=== PATIENT | male | born 1960 | race Caucasian/White ===

== ENCOUNTER 2020-01-12 17:47 | Inpatient (IN) | payer MEDICAID, OTHER ==
[~2020-01-12] VITALS: Ht 180.3 cm; Wt 115.2 kg
[2020-01-12 18:30] VITALS: BP 160/92
--- NOTE | 2020-01-12 19:19 | NUR ---
PT AMBULATED TO BED 7.
[2020-01-12 19:27] LABS: BASOPHILS % (AUTO) 0.5 % (0.0-2.0); EOSINOPHILS # (AUTO) 0.1 K/uL (0-0.4); EOSINOPHILS % (AUTO) 1.1 % (0.0-4.0); HEMATOCRIT 45.7 % (36-52); HEMOGLOBIN 15.4 g/dL (12.0-18.0); LYMPHOCYTES # (AUTO) 1.6 K/uL (2.0-11.5); LYMPHOCYTES % (AUTO) 16.4 % (20.5-51.1); MEAN CORPUSCULAR HEMOGLOBIN 31 pg (27-31); MEAN CORPUSCULAR HGB CONC 34 g/dL (33-37); MONOCYTES # (AUTO) 1.1 K/uL (0.8-1.0); MONOCYTES % (AUTO) 11.8 % (1.7-9.3); NEUTROPHILS # (AUTO) 6.6 K/uL (1.8-7.7); NEUTROPHILS % (AUTO) 70.2 % (42.2-75.2); PLATELET COUNT (AUTO) 236 K/uL (140-450); RED BLOOD CELL COUNT(AUTO) 4.97 MIL/uL (4.20-6.10); RED CELL DISTRIBUTION WIDTH 13.7 % (11.6-13.7); WHITE BLOOD COUNT (AUTO) 9.5 K/uL (4.8-10.8)
[2020-01-12 19:38] LABS: ALBUMIN 3.5 g/dL (3.4-5.0); ANION GAP 8.5 (8-16); CARBON DIOXIDE 33.7 mmol/L (21-32); CREATININE 0.9 mg/dL (0.6-1.3); POTASSIUM 4.2 mmol/L (3.5-5.1); TOTAL BILIRUBIN 0.5 mg/dL (0.0-1.0)
--- NOTE | 2020-01-12 19:43 | NUR ---
59 Y/O MALE C/O RIGHT THUMB/HAND PAIN. PT CUT RIGHT THUMB 5 DAYS AGO AT WORK AND APPLIED A NATURAL REMEDY WITH NO RELIEF. TODAY PT PRESENTS WITH RIGHT SWOLLEN THUMB WITH LACERATION LINE THAT IS PURPLE/BLACK FROM NATURAL MEDICATION FROM [place] PER PT. RIGHT HAND IS SWOLLEN WITH ERYTHEMA, RIGHT HAND/FINGER MOBILITY IS DECREASED. RADIAL RIGHT PULE PRESENT. MEDICAL HX: PT DENIES NKA DENIES N/V/D; SKIN IS PINK/WARM/DRY; AAOX4 WITH EVEN AND STEADY GAIT; PT DENIES ANY FEVER, CP, SOB, OR COUGH AT THIS TIME; PATIENT STATES PAIN OF 4/10 AT THIS TIME; VSS; PATIENT POSITIONED FOR COMFORT; HOB ELEVATED; BEDRAILS UP X1; BED DOWN AND LOCKED.
[2020-01-12] MEDS ORDERED: KETOROLAC 30 MG/ML VIAL IVP ONE (19:50)
[2020-01-12] MEDS ORDERED: NACL 0.9% 1,000 ML IV ONE (19:50)
[2020-01-12] MEDS ORDERED: ceFAZolin 1,000 MG VIAL ONE (19:52)
[2020-01-12] MEDS ORDERED: NACL 0.9% 1,000 ML IV SCH (19:58)
[2020-01-12] MEDS ORDERED: ACETAMINOPHEN 325 MG TAB PO PRN (20:00)
[2020-01-12] MEDS ORDERED: DOCUSATE SODIUM 100 MG GELCAP PO PRN ×2 (20:00→20:15)
[2020-01-12] MEDS ORDERED: MORPHINE SULFATE 2 MG/ML SYR IVP PRN (20:00)
[2020-01-12] MEDS ORDERED: ONDANSETRON 4 MG/2 ML VIAL IM/IVP PRN ×2 (20:00→20:15)
--- NOTE | 2020-01-12 20:16 | NUR ---
PT RESTING IN BED IN POSITION OF COMFORT, PT JUST RECEIVED PAIN MEDS, BED LOW AND LOCKED, 1 SIDERAIL UP. WILL CONTINUE TO MONITOR.
[2020-01-12 20:36] LABS: PROTHROMBIN TIME 10.2 secs (10.8-13.4)
[2020-01-12 20:43] LABS: FREE T4 (FREE THYROXINE) 1.21 ng/dL (0.76-1.46); PHOSPHORUS 3.6 mg/dL (2.5-4.9); THYROID STIMULATING HORMONE 1.61 uIU/mL (0.34-3.74)
--- NOTE | 2020-01-12 21:03 | NUR ---
GAVE PT URINAL AND ASKED HIM TO VOID BUT PT STATES UNABLE TO VOID AT THIS TIME
--- NOTE | 2020-01-12 21:05 | NUR ---
RECIVED REPORT FROM SAL PINEDO. CONTINUATION OF CARE.
--- NOTE | 2020-01-12 21:08 | NUR ---
Pt report given to SHAHIDA MCCLURE . Transfer of care at this time.
[2020-01-12] MEDS ORDERED: VANCOMYCIN PER PHARMACY MC PRN (21:30)
[2020-01-12] MEDS ORDERED: VANCOMYCIN HCL 2,000 MG in NACL 0.9% 500 ML IV SCH (21:40)
--- NOTE | 2020-01-12 22:00 | NUR ---
Patient will be admitted to care of . Admited to [facility]. Will go to room 126B. Belongings list completed. Report to LOU PINEDO.
[2020-01-12 22:04] LABS: APPEARANCE,URINE SL CLOUDY (CLEAR); BILIRUBIN,URINE NEGATIVE (NEGATIVE); BLOOD, URINE TRACE-I (NEGATIVE); COLOR,URINE YELLOW (YELLOW); LEUKOCYTE ESTERASE ,URINE NEGATIVE (NEGATIVE); NITRITE, URINE NEGATIVE (NEGATIVE); PH,URINE 5.5 (5.0-9.0); UGLUCOSE NEGATIVE (NEGATIVE)
[2020-01-12 22:10] VITALS: BP 130/70
--- NOTE | 2020-01-12 22:10 | NUR ---
RECIEVED PT FRM ER , AAOX4 , ON WHEELCAHIR , AMBULATES TO BED NID , W/ SWOLLEN R HAND - W/ LACERATED WOUND ON R THUMB W/ PUS FORMED . AFEBRLE . IV SITE INTACT AND PATENT . ADMISSION ASSESSMENT DONE - MRSA SENT TO LAB . PUT ON SAFETY MEASURE - CALL LIGHT WITHIN REACH . POC DISCUSSED AND VERBALIZE UNDERSTANDING WILL CONT. TO MONITOR.
[2020-01-12] MEDS ORDERED: VANCOMYCIN 1,000 MG VIAL ONE (22:47)
[2020-01-12] MEDS: NACL 0.9% 1,000 ML IV SCH (22:57)
[2020-01-12 23:17] LABS: RBC,URINE 0-5 /HPF (0-5); URINE AMORPHOUS URATE 1+ /HPF (None Seen); WBC,URINE 0-5 /HPF (0-5)
[2020-01-12 23:52] LABS: BARBITURATE, URINE NEGATIVE ng/ml (NEG <=200); BENZODIAZEPINE, URINE NEGATIVE ng/mL (NEG <=200); CANNABINOID, URINE NEGATIVE ng/mL (NEG <=50); COCAINE, URINE NEGATIVE ng/mL (NEG <=300); OPIATE, URINE NEGATIVE ng/mL (NEG <=2000); PHENCYCLIDINE SCREEN,URINE NEGATIVE ng/mL (NEG <=25)
--- NOTE | 2020-01-13 | NUR ---
RESTING ON BED , CALL LIGHT WITHIN REACH.
[2020-01-13 04:00] VITALS: BP 140/80
--- NOTE | 2020-01-13 04:00 | NUR ---
NO COMPLAIN MADE - CALL LIGHT WITHIN REACH.
--- NOTE | 2020-01-13 06:00 | NUR ---
MAINTAIN NPO - R EMPHASIZED . BEARABLE PAIN .
[2020-01-13 06:51] LABS: CHOL/HDL RATIO 3.7 (1-4.5)
--- NOTE | 2020-01-13 07:10 | NUR ---
Received report from pm nurse Carol. Pt resting in bed, no signs of distress, FLACC 0, respirations even & nonlabored in room air. Left AC IV intact with ongoing NS @ 120ml/h. Call light within reach.
[2020-01-13 08:00] VITALS: BP 130/80
[2020-01-13] MEDS: NACL 0.9% 1,000 ML IV SCH ×3 (08:00→21:52)
[2020-01-13] MEDS: LACTOBACILLUS RHAMNOSUS GG 1 EACH CAP PO SCH (08:14)
[2020-01-13] MEDS: ACETAMINOPHEN 325 MG TAB PO PRN (08:17)
[2020-01-13] MEDS ORDERED: LACT10CA PO (08:45)
[2020-01-13] MEDS ORDERED: Vancomycin Per Pharmacy MC (08:45)
[2020-01-13] MEDS: VANCOMYCIN 1,000 MG in DEXTROSE 5% 250 ML IV SCH ×2 (10:03→17:12)
--- NOTE | 2020-01-13 10:39 | NUR ---
DISCHARGE PLANNING: RECEIVED AN ORDER FOR HIGHER LEVEL OF TRANSFER. [place] [facility] [place]. 0922: CONTACTED [facility] TRANSFER [place], ABLE TO SPEAK TO SAMANTA. HE STATED HE WILL CHECK IF THEY HAVE AN AVAILABLE HAND SURGEON AND WILL CALL ME BACK. 1015: RECEIVED A MESSAGE FROM SAMANTA OF [facility], STATING THAT THEIR HAND SURGEON IS FULLY BOOK AT THIS TIME AND WILL NOT BE ABLE TO ACCEPT THE CASE. CONTACTED [facility], ABLE TO SPEAK TO ARIANE AND SHE CONFIRMED THE MESSAGE. 1025: RECEIVED A CALL FROM [facility], STATING THAT THEY CANNOT ACCEPT THE CASE BECAUSE THEY DO NOT HAVE A HAND SURGEON. 1027: RECEIVED A CALL FROM VERONICA OF [facility] TO GATHER MORE INFORMATION REGARDING THIS PATIENT. ALL INFORMATION NEEDED PROVIDED. PROVIDED HER OF THE DR. BLAND'S PHONE NUMBER FOR DOC TO DOC CALL. SHE ALSO ASKED FOR THE SURGEON'S PHONE NUMBER. I INFORMED HER THAT I WILL DISCUSS THIS WITH OUR DOC SINCE THERE IS NO SURGICAL CONSULT IN PLACE. VERONICA STATED THAT THEY NEED DOCUMENTATION FROM OUR SURGEON STATING THAT THEY ARE NOT ABLE TO PERFORM THE PROCEDURE AT OUT FACILITY. DR. DANGELO MADE AWARE. SHE STATED SHE WILL CONTACT DR. AJ AND WILL LET ME KNOW. WILL FOLLOW UP. Addendum: 01/13/20 at 1449 by Taylor Mendoza 1147: PER DR. DANGELO SHE IS ABLE TO CONTACT DR. AJ AND DR. AJ WILL COME SEE THE PATIENT. 1230: PER DR. LORETO AJ CAME AND SEEN THE PATIENT AND RECOMMENDED HIGHER LEVEL OF TRANSFER. SHE ALSO PROVIDED ME OF DR. AJ'S PHONE NUMBER [phone] FOR DOC TO DOC CALL. DR. AJ'S PHONE NUMBER PROVIDED TO VERONICA OF [facility] TRANSFER CENTER. SHE SAID SHE WILL REACH OUT TO THEIR SURGEON'S AND WILL LET ME KNOW SOON WE GET AN ACCEPTING. RECEIVED A CALL FROM [facility], STATING THAT THEY ARE DECLINING THE CASE DUE TO PER THEIR HAND SURGEON PATIENT DOES NOT NEED SURGICAL INTERVENTION AND CAN BE MANAGE BY IV ANTIBIOTICS PER MEDICAL DEPARTMENT. HE ALSO STATED THAT THEY ARE AT A CAPACITY IN THEIR MEDICAL DEPARTMENT AND WILL NOT BE ABLE TO TAKE THE PATIENT IN. DR. DANGELO MADE AWARE. Addendum: 01/16/20 at 1124 by Tracey Veloz CM DC PLANNING: FAXED THE HIGHER LEVEL REQUEST TO [facility], [facility] , AND [facility]. RECEIVED A CALL FROM [facility] SPOKE WITH VERONICA UPDATED THE CLINICAL AND PROVIDE DR AJ'S CELL PHONE. PER VERONICA WILL FAX THE TRANSFER AGREEMENT PAPER [place] TO FOLLOW. Addendum: 01/16/20 at 1216 by Tracey Veloz CM DC PLANNING RECEIVED A CALL [facility] SPOKE WITH CHRISTINA STATED DR ELGIN [facility]HEAD ACCEPTED THE CASE AND WILL FAX TRANSFER AGREEMENT LETTER . RECEIVED A CALL FROM [facility] SPOKE WITH STARR STATED THE HAND SURGEON COMES ONLY ONCE A MONTH AND HE CAME ALREADY , THEY ARE UNABLE TO TAKE PATIENT. Addendum: 01/16/20 at 1630 by Tracey Veloz CM DC PLANNING: RECEIVED A CALL FROM [facility] SPOKE WITH TOM CORBETT RECEIVED THE TRANSFER AGREEMENT PAPER AND WAITING FOR A BED. RECEIVED A CALL FROM [facility] [phone] AND [facility] SPOKE WITH MAXIME [phone] STILL REVIEWING THE CASE WILL CALL BACK WHEN BED AVAILABLE AND ACCEPTING DR Henry MONDRAGON [facility] AND PLACE IT WILL CALL AND PROVIDED UNIT NUMBER.
[2020-01-13] MEDS: MORPHINE SULFATE 2 MG/ML SYR IVP PRN ×2 (10:58→17:13)
[2020-01-13] MEDS: PIPERACILLIN/TAZOBACTAM 3.375 GM in DEXTROSE 5% 50 ML IV SCH ×3 (12:26→23:45)
[2020-01-13] MEDS ORDERED: ZOS3.375PM IV (12:27)
[2020-01-13 14:59] LABS: BASOPHILS % (AUTO) 0.5 % (0.0-2.0); EOSINOPHILS # (AUTO) 0.1 K/uL (0-0.4); EOSINOPHILS % (AUTO) 1.1 % (0.0-4.0); HEMATOCRIT 40.5 % (36-52); HEMOGLOBIN 13.5 g/dL (12.0-18.0); LYMPHOCYTES # (AUTO) 1.8 K/uL (2.0-11.5); LYMPHOCYTES % (AUTO) 20.6 % (20.5-51.1); MEAN CORPUSCULAR HEMOGLOBIN 30 pg (27-31); MEAN CORPUSCULAR HGB CONC 33 g/dL (33-37); MONOCYTES # (AUTO) 0.9 K/uL (0.8-1.0); MONOCYTES % (AUTO) 10.1 % (1.7-9.3); NEUTROPHILS # (AUTO) 5.9 K/uL (1.8-7.7); NEUTROPHILS % (AUTO) 67.7 % (42.2-75.2); PLATELET COUNT (AUTO) 214 K/uL (140-450); RED BLOOD CELL COUNT(AUTO) 4.45 MIL/uL (4.20-6.10); RED CELL DISTRIBUTION WIDTH 13.6 % (11.6-13.7); WHITE BLOOD COUNT (AUTO) 8.6 K/uL (4.8-10.8)
[2020-01-13 15:16] LABS: CARBON DIOXIDE 28.7 mmol/L (21-32); CREATININE 0.8 mg/dL (0.6-1.3); POTASSIUM 3.7 mmol/L (3.5-5.1)
--- NOTE | 2020-01-13 15:51 | NUR ---
PATIENT HAS BEEN SCREENED AND CATEGORIZED HIGH NUTRITION RISK. PATIENT WILL BE SEEN WITHIN 1-2 DAYS OF ADMISSION. 01/13/20-01/14/[address]
[2020-01-13 16:00] VITALS: BP 146/84
--- NOTE | 2020-01-13 19:05 | NUR ---
RECD. RESTING IN BED, AWAKE, A/OX4. RESPIRATION EVEN AND UNLABORED. IV OF NS AT 120 ML/HR INFUSING, LEFT AC G20. RIGHT THUMB WITH DISCOLORATION AND SWELLING, WITH GAUZE DRESSING DRY AND INTACT. PLAN OF CARE FOR THE SHIFT DISCUSSED. VERBALIZED UNDERSTANDING. PAIN IN THE HAND 11/14, STATED TOLERABLE. ON IV ANTIBIOTICS.
--- NOTE | 2020-01-13 19:30 | NUR ---
Patient's Plan of Care was discussed and reviewed with FENCE BUILDER: DENISE
--- NOTE | 2020-01-13 21:00 | NUR ---
HOLD HEPARIN PER VERBAL ORDER OF DR. JARRETT, PATIENT IS FOR I & D TOMORROW.
--- NOTE | 2020-01-13 23:00 | NUR ---
SLEEPING COMFORTABLY IN BED.
[2020-01-13] MEDS: HYDROcodone/APAP 5/325 MG 1 TAB TAB PO PRN (23:41)
[2020-01-14] VITALS: BP 128/69
--- NOTE | 2020-01-14 | NUR ---
NPO PAST MIDNIGHT. VERBALIZED UNDERSTANDING.
[2020-01-14] MEDS: VANCOMYCIN 1,000 MG in DEXTROSE 5% 250 ML IV SCH (01:19)
--- NOTE | 2020-01-14 02:30 | NUR ---
SNORING A LOT. OCCASIONALLY MAKES STRANGE SOUNDS BUT WHEN ASKED IF HE HAS ANY PROBLEM, CONTINUED SLEEPING SOUNDLY.
--- NOTE | 2020-01-14 05:15 | NUR ---
SIGNED CONSENT FOR I & D OF RIGHT THUMB. REMINDED THAT HE IS NPO, VERBALIZED UNDERSTANDING.
[2020-01-14] MEDS: PIPERACILLIN/TAZOBACTAM 3.375 GM in DEXTROSE 5% 50 ML IV SCH ×4 (05:36→23:56)
[2020-01-14] MEDS: NACL 0.9% 1,000 ML IV SCH ×3 (05:48→22:52)
[2020-01-14 06:26] LABS: ANION GAP 9.2 (8-16); CARBON DIOXIDE 30.6 mmol/L (21-32); CREATININE 0.7 mg/dL (0.6-1.3); POTASSIUM 3.8 mmol/L (3.5-5.1)
[2020-01-14 06:31] LABS: BASOPHILS # (AUTO) 0.1 K/uL (0.00-0.22); BASOPHILS % (AUTO) 0.5 % (0.0-2.0); EOSINOPHILS # (AUTO) 0.1 K/uL (0-0.4); EOSINOPHILS % (AUTO) 0.8 % (0.0-4.0); HEMATOCRIT 39.9 % (36-52); HEMOGLOBIN 13.5 g/dL (12.0-18.0); LYMPHOCYTES % (AUTO) 19.4 % (20.5-51.1); MEAN CORPUSCULAR HEMOGLOBIN 31 pg (27-31); MEAN CORPUSCULAR HGB CONC 34 g/dL (33-37); MONOCYTES # (AUTO) 1.1 K/uL (0.8-1.0); MONOCYTES % (AUTO) 10.4 % (1.7-9.3); NEUTROPHILS % (AUTO) 68.9 % (42.2-75.2); PLATELET COUNT (AUTO) 223 K/uL (140-450); RED BLOOD CELL COUNT(AUTO) 4.39 MIL/uL (4.20-6.10); RED CELL DISTRIBUTION WIDTH 13.5 % (11.6-13.7); WHITE BLOOD COUNT (AUTO) 10.1 K/uL (4.8-10.8)
--- NOTE | 2020-01-14 07:20 | NUR ---
CONDITION REMAIN STABLE. ENDORSED TO AM SHIFT NURSE FOR CONTINUITY OF CARE.
--- NOTE | 2020-01-14 07:25 | NUR ---
RECEIVED BEDSIDE REPORT FROM NIGHT NURSE. PATIENT IN BED, ASLEEP, EASILY AROUSABLE BY NAME OR TOUCH. INTRODUCED SELF. RESPIRATION EVEN AND UNLABORED. SKIN WARM AND DRY TO TOUCH. IV INTACT AND PATENT TO LEFT AC. PLANS OF CARE DISCUSSED. NO DISTRESS NOTED. CALL LIGHT WITHIN REACH. SAFETY MEASURES IN PLACE.
[2020-01-14 08:00] VITALS: BP 134/75
[2020-01-14] MEDS: LACTOBACILLUS RHAMNOSUS GG 1 EACH CAP PO SCH (09:00)
--- NOTE | 2020-01-14 09:15 | NUR ---
PATIENT IS OFF UNIT. PATIENT PICKED UP BY SHAHIDA STEIN [facility] FOR I & D PROCEDURE.
[2020-01-14] MEDS ORDERED: LIDOCAINE 1% 500 MG/50 ML VIAL ONE (09:37)
[2020-01-14] MEDS ORDERED: BACITRACIN 50000 UNITS/1 VIAL ONE (09:38)
[2020-01-14] MEDS ORDERED: DESFLURANE 240 ML BTL INH ONE (09:46)
[2020-01-14] MEDS ORDERED: ONDANSETRON 4 MG/2 ML VIAL ONE (09:46)
[2020-01-14] MEDS ORDERED: PROPOFOL 200 MG/20 ML VIAL IV ONE (09:46)
[2020-01-14] MEDS ORDERED: fentaNYL 0.05 MG/ML VIAL ONE (09:46)
--- NOTE | 2020-01-14 10:05 | NUR ---
WOUND CARE EVALUATION NOT DONE. PT IS OFF UNIT FOR SURGERY.
[2020-01-14] MEDS ORDERED: INSULIN LISPRO SLIDING SCALE 100 UNITS/ML VIAL SUBQ PRN (11:05)
[2020-01-14] MEDS ORDERED: DEXTROSE 50% 50 ML SYR IVP PRN (11:05)
[2020-01-14 11:10] VITALS: BP 129/72
--- NOTE | 2020-01-14 11:10 | NUR ---
PATIENT RETURNED FROM OR VIA GURNEY. PATIENT S/P I & D TO RIGHT THUMB. RIGHT HAND S/P I & D COVERED WITH DRY DRESSING AND MARILIN WRAP. VS STABLE.
[2020-01-14] MEDS: MORPHINE SULFATE 2 MG/ML SYR IVP PRN (11:24)
[2020-01-14] MEDS ORDERED: BLOOD GLUCOSE MONITORING 1 DEV DEV FS SCH (11:30)
--- NOTE | 2020-01-14 13:00 | NUR ---
PATIENT IS LYING IN BED ASLEEP BUT EASILY AROUSABLE BY NAME OR TOUCH. RESPIRATION EVEN AND UNLABORED. NO S/S OF DISTRESS NOTED. CALL LIGHT WITHIN REACH.
[2020-01-14] MEDS: VANCOMYCIN 1,250 MG in NACL 0.9% 250 ML IV SCH ×2 (13:27→20:27)
--- NOTE | 2020-01-14 15:30 | NUR ---
PATIENT IS ASLEEP, EASILY AROUSABLE BY NAME OR TOUCH. NO S/S OF DISTRESS NOTED. CALL LIGHT WITHIN REACH.
[2020-01-14 16:00] VITALS: BP 123/75
--- NOTE | 2020-01-14 16:01 | NUR ---
01/14/20 RD INITIAL ASSESSMENT COMPLETED PLEASE REFER TO NUTRITION ASSESSMENT UNDER CARE ACTIVITY FOR ESTIMATED NUTRITIONAL NEEDS. 1.CONTINUE [facility] DIET TOLERATED 2 2.RD TO FOLLOW-UP 3-5 DAYS, MODERATE RISK [address]
[2020-01-14] MEDS: ACETAMINOPHEN 325 MG TAB PO PRN (16:10)
--- NOTE | 2020-01-14 17:30 | NUR ---
PATIENT SLEEPING, NO S/S OF DISTRESS NOTED. EASILY AROUSABLE BY NAME OR TOUCH. CALL LIGHT WITHIN REACH.
--- NOTE | 2020-01-14 19:00 | NUR ---
PATIENT IN STABLE CONDITION. WILL ENDORSE TO NIGHT NURSE FOR CONTINUITY OF CARE.
[2020-01-14] MEDS ORDERED: MORPHINE SULFATE 4 MG/ML SYR IVP SCH (19:05)
--- NOTE | 2020-01-14 19:15 | NUR ---
RECD. STANDING BESIDE BED,AWAKE, A/OX4. RESPIRATION EVEN AND UNLABORED. IV OF NS AT 120 ML/HR INFUSING, LEFT WRIST G20. INCISION IN THE RIGHT THUMB, S/P I & D, WITH PACKING, COVERED WITH GAUZE AND MARILIN WRAPPED BANDAGE, DRY AND INTACT. PAIN 9IN THE RIGHT THUMB, 1/10 STATED TOLERABLE. PLAN OF CARE FOR THE SHIFT DISCUSSED. SEEMS IRRITABLE. JUST NOD. HAD ACCIDENTALLY SPILLED UA ON THE FLOOR, GOWN AND SOCKS CHANGED BY OUTSIDE PLANT FIELD ENGINEER, MADE COMFORTABLE IN BED.
[2020-01-14 20:15] VITALS: BP 115/81
--- NOTE | 2020-01-14 20:20 | NUR ---
DR. AJ CAME AND REMOVED PACKING FROM THE WOUND, COVER WITH GAUZE DRESSING AND KERLIX, AND MARILIN WRAP BANDAGE.
--- NOTE | 2020-01-14 20:25 | NUR ---
MEDICATED WITH MORPHINE 4 MG. IVP BY SHAHIDA DEWITT. MADE COMFORTABLE IN BED WITH PILLOWS WITH RIGHT ARM ELEVATED.
--- NOTE | 2020-01-14 21:00 | NUR ---
Patient's Plan of Care was discussed and reviewed with FLIGHT CONTROL MANAGER: DAVID HARDY
--- NOTE | 2020-01-14 22:00 | NUR ---
SLEEPING COMFORTABLY IN BED.
--- NOTE | 2020-01-15 | NUR ---
SNORING OCCASIONAL LOUD IN BED, NO DISTRESS NOTED.
--- NOTE | 2020-01-15 02:00 | NUR ---
TOLERATED WELL VANCOMYCIN AND ZOSYN INFUSED BY SHAHIDA DEWITT.
[2020-01-15] MEDS: NACL 0.9% 1,000 ML IV SCH ×4 (03:19→23:52)
--- NOTE | 2020-01-15 04:30 | NUR ---
AWAKE IN BED, OFFERED PAIN MEDICATION, REFUSED WANTS LATER. WENT BACK TO SLEEP.
[2020-01-15] MEDS: VANCOMYCIN 1,250 MG in NACL 0.9% 250 ML IV SCH (04:33)
[2020-01-15 05:56] LABS: BASOPHILS % (AUTO) 0.4 % (0.0-2.0); EOSINOPHILS % (AUTO) 0.4 % (0.0-4.0); HEMATOCRIT 36.4 % (36-52); HEMOGLOBIN 12.2 g/dL (12.0-18.0); LYMPHOCYTES # (AUTO) 1.4 K/uL (2.0-11.5); LYMPHOCYTES % (AUTO) 16.3 % (20.5-51.1); MEAN CORPUSCULAR HEMOGLOBIN 31 pg (27-31); MEAN CORPUSCULAR HGB CONC 34 g/dL (33-37); MEAN CORPUSCULAR VOLUME 91.2 fL (80-94); MONOCYTES % (AUTO) 11.7 % (1.7-9.3); NEUTROPHILS # (AUTO) 5.9 K/uL (1.8-7.7); NEUTROPHILS % (AUTO) 71.2 % (42.2-75.2); PLATELET COUNT (AUTO) 228 K/uL (140-450); RED BLOOD CELL COUNT(AUTO) 3.99 MIL/uL (4.20-6.10); RED CELL DISTRIBUTION WIDTH 13.7 % (11.6-13.7); WHITE BLOOD COUNT (AUTO) 8.3 K/uL (4.8-10.8)
[2020-01-15] MEDS: PIPERACILLIN/TAZOBACTAM 3.375 GM in DEXTROSE 5% 50 ML IV SCH ×3 (06:09→18:54)
[2020-01-15 06:32] LABS: ANION GAP 10.7 (8-16); CARBON DIOXIDE 29.5 mmol/L (21-32); CREATININE 0.8 mg/dL (0.6-1.3); POTASSIUM 4.2 mmol/L (3.5-5.1)
[2020-01-15 06:42] LABS: PHOSPHORUS 2.4 mg/dL (2.5-4.9)
--- NOTE | 2020-01-15 07:24 | NUR ---
RECEIVED REPORT FROM NIGHT NURSE FOR CONTINUITY OF CARE, PT IS ASLEEP IN BED, PT IS STABLE, RESPIRATIONS ARE EVEN AND UNLABORED ON ROOM AIR, PT IS S/P I&D RIGHT THUMB, PT HAS LEFT WRIST 20G INFUSING NS AT 120 ML/H, UPDATED WHITEBOARD, SAFETY MEASURES IN PLACE, CALL LIGHT WITHIN REACH, WILL CONTINUE TO MONITOR.
--- NOTE | 2020-01-15 07:25 | NUR ---
STILL SLEEPING COMFORTABLY IN BED. CONDITION REMAIN STABLE. ENDORSED TO AM SHIFT NURSE FOR CONTINUITY OF CARE.
[2020-01-15 08:00] VITALS: BP 114/63
[2020-01-15] MEDS: LACTOBACILLUS RHAMNOSUS GG 1 EACH CAP PO SCH (08:18)
--- NOTE | 2020-01-15 08:22 | NUR ---
ADMINISTERED ORDERED MEDICATION, PT EDUCATION GIVEN, PT VERBALIZED UNDERSTANDING, PT TOLERATED WELL, PT IS STABLE, CALL LIGHT WITHIN REACH.
[2020-01-15] MEDS ORDERED: SODIUM PHOS / POTASSIUM PHOS 1 PKT PDR PO SCH (09:02)
--- NOTE | 2020-01-15 11:00 | NUR ---
PT STABLE IN BED, CALL LIGHT WITHIN REACH.
--- NOTE | 2020-01-15 12:42 | NUR ---
ADMINISTERED ORDERED MEDICATION, EDUCATION GIVEN, PT TOLERATED WELL, PT STABLE, CALL LIGHT WITHIN REACH.
--- NOTE | 2020-01-15 15:00 | NUR ---
PT ASLEEP IN ROOM, PT IS STABLE, NO SIGNS OF DISTRESS, CALL LIGHT WITHIN REACH.
--- NOTE | 2020-01-15 15:05 | NUR ---
WAITING ON VANCOMYCIN TROUGH TO ADMINISTERED MEDICATION, PHARMACY CALLED AND SAID THE VANCOMYCIN TROUGH 7.6 IS TOO LOW AND WILL RE-ADJUST DOSAGE TO INCREASE TROUGH, WILL HOLD MEDICATION PER PHARMACY AND WILL ADMINISTERED THE NEW MED ONCE RECEIVED.
--- NOTE | 2020-01-15 15:13 | NUR ---
PT ASLEEP IN BED, NO SIGNS OF DISTRESS NOTED, PT ON O2 OXIMIZER, PT IS STABLE, CALL LIGHT WITHIN REACH. Addendum: 01/15/20 at 1514 by Bernadine Bravo RN WRONG PT
[2020-01-15 16:00] VITALS: BP 102/60
[2020-01-15] MEDS: VANCOMYCIN 1,500 MG in DEXTROSE 5% 500 ML IV SCH (16:08)
--- NOTE | 2020-01-15 16:10 | NUR ---
ADMINISTERED ORDERED MEDICATION, PT EDUCATION GIVEN, PT VERBALIZED UNDERSTANDING, PT IS STABLE, NO SIGNS OF DISTRESS NOTED, CALL LIGHT WITHIN REACH.
[2020-01-15] MEDS: ACETAMINOPHEN 325 MG TAB PO PRN (18:17)
--- NOTE | 2020-01-15 18:18 | NUR ---
ADMINISTERED TYLENOL FOR HEADACHE, PT STATES HE HAS A MILD HEADACHE, PT EDUCATION GIVEN, PT VERBALIZED UNDERSTANDING, PT IS STABLE, CALL LIGHT WITHIN REACH.
--- NOTE | 2020-01-15 19:15 | NUR ---
GAVE REPORT TO NIGHT NURSE FOR CONTINUITY OF CARE, PT IS STABLE.
--- NOTE | 2020-01-15 19:15 | NUR ---
RECEIVED BEDSIDE REPORT FROM AM SHIFT RN FOR PT'S CONTINUITY OF CARE. PT IS ASLEEP WITH NO SIGNS OF DISTRESS. PT IS ON ROOM AIR, HAS LEFT WRIST 20G WITH NS AT 120ML/HR, HAS RIGHT THUMB/HAND DRESSING, DRY AND INTACT. SAFETY MEASURES IN PLACE, AND CALL LIGHT IS WITHIN REACH. WILL MONITOR PT THROUGHOUT SHIFT.
--- NOTE | 2020-01-15 20:53 | NUR ---
ADMINISTERED SCHEDULED SUBQ HEPARIN ORDERED. PT TOLERATED IT WELL. PT REQUESTED AND PROVIDED SNACKS. PT DENIES ANY PAIN OR DISCOMFORT. WILL CONTINUE TO MONITOR PT.
--- NOTE | 2020-01-15 23:00 | NUR ---
PT'S IV INFILTRATED. WILL REINSERT NEW IV.
[2020-01-16] VITALS: BP 139/85
--- NOTE | 2020-01-16 00:20 | NUR ---
NEW IV INSERTED. NEW IV SITE: LEFT AC 22G. PT TOLERATED IT WELL. RE-STARTED IVF.
[2020-01-16] MEDS: PIPERACILLIN/TAZOBACTAM 3.375 GM in DEXTROSE 5% 50 ML IV SCH ×3 (00:50→12:16)
--- NOTE | 2020-01-16 00:50 | NUR ---
ADMINISTERED SCHEDULED IV ABX ORDERED. PT ASLEEP WITH NO SIGNS OF DISTRESS. WILL CONTINUE TO MONITOR PT.
[2020-01-16] MEDS: VANCOMYCIN 1,500 MG in DEXTROSE 5% 500 ML IV SCH ×3 (01:30→15:48)
--- NOTE | 2020-01-16 03:00 | NUR ---
PT ASLEEP WITH NO SIGNS OF DISTRESS. WILL CONTINUE TO MONITOR PT.
--- NOTE | 2020-01-16 04:40 | NUR ---
MADE ROUNDS. PT'S IV BEEPING AND O2 NC OFF OF PT. RE-INSTRUCTED PT TO STRAIGHTEN ARM AND TO NOT TAKE OXYGEN OFF. PT VERBALIZED UNDERSTANDING. PT'S NEEDS MET, INFORMED RE: OXYGEN ADMINISTRATION. WILL CONTINUE TO MONITOR PT.
[2020-01-16 05:49] LABS: ANION GAP 10.3 (8-16); CARBON DIOXIDE 30.5 mmol/L (21-32); CREATININE 0.8 mg/dL (0.6-1.3); POTASSIUM 3.8 mmol/L (3.5-5.1)
[2020-01-16 05:51] LABS: BASOPHILS # (AUTO) 0.1 K/uL (0.00-0.22); BASOPHILS % (AUTO) 0.8 % (0.0-2.0); EOSINOPHILS % (AUTO) 0.2 % (0.0-4.0); HEMATOCRIT 37.1 % (36-52); HEMOGLOBIN 12.4 g/dL (12.0-18.0); LYMPHOCYTES # (AUTO) 0.9 K/uL (2.0-11.5); LYMPHOCYTES % (AUTO) 12.3 % (20.5-51.1); MEAN CORPUSCULAR HEMOGLOBIN 30 pg (27-31); MEAN CORPUSCULAR HGB CONC 33 g/dL (33-37); MEAN CORPUSCULAR VOLUME 90.6 fL (80-94); MONOCYTES # (AUTO) 0.7 K/uL (0.8-1.0); MONOCYTES % (AUTO) 10.2 % (1.7-9.3); NEUTROPHILS # (AUTO) 5.5 K/uL (1.8-7.7); NEUTROPHILS % (AUTO) 76.5 % (42.2-75.2); PLATELET COUNT (AUTO) 220 K/uL (140-450); RED CELL DISTRIBUTION WIDTH 13.2 % (11.6-13.7); WHITE BLOOD COUNT (AUTO) 7.2 K/uL (4.8-10.8)
[2020-01-16 05:53] LABS: MAGNESIUM 1.8 mg/dL (1.8-2.4); PHOSPHORUS 2.6 mg/dL (2.5-4.9)
--- NOTE | 2020-01-16 06:05 | NUR ---
ADMINISTERED SCHEDULED IV ABX ORDERED. PT ASLEEP WITH NO SIGNS OF DISTRESS. OXYGEN ON 2L NC AND SAFETY MEASURES IN PLACE. WILL ENDORSE TO AM SHIFT RN FOR PT'S CONTINUITY OF CARE.
--- NOTE | 2020-01-16 07:20 | NUR ---
BEDSIDE SHIFT REPORT RECEIVED FROM SUBASSEMBLY SUPERVISOR NURSE FOR CONTINUATION OF CARE.
[2020-01-16 08:00] VITALS: BP 125/69
[2020-01-16] MEDS: NACL 0.9% 1,000 ML IV SCH (08:12)
[2020-01-16] MEDS: LACTOBACILLUS RHAMNOSUS GG 1 EACH CAP PO SCH (08:55)
--- NOTE | 2020-01-16 10:00 | NUR ---
PATIENT ASSESSED BY SURGEON DR. KIMBROUGH, SUGGESTION PER MD IS FOR TRANSFER TO HIGHER LEVEL OF CARE. PATIENT IS FEBRILE, WITH MODERATE DIAPHORESIS AND CHILLS. PATIENT REPORTS PAIN IN RIGHT THUMB S/P I&D. BED IS IN LOW POSITION, TYLENOL ADMINISTERED FOR FEVER. WILL CONTINUE TO MONITOR.
--- NOTE | 2020-01-16 13:00 | NUR ---
TEMPERATURE IS 98.8 ORAL. A DECREASE FROM THIS MORNINGS 101.1 ORAL TEMPERATURE. PATIENT IS RESTING IN BED, CHILLS PRESENT. OMEGA OSEGUERA. WILL CONTINUE TO MONITOR.
[2020-01-16] MEDS: HYDROcodone/APAP 5/325 MG 1 TAB TAB PO PRN (13:11)
--- NOTE | 2020-01-16 16:20 | NUR ---
POC DISCUSSED WITH DR. HUBER, PER DR. KIMBROUGH TO CHANGE DRESSING, NO PACKING AND TRANSFER TO HIGHER LEVEL OF CARE. RIGHT HAND S/P I&D 2 SURGICAL INCISIONS TO RIGHT DORSAL THUMB,SITE #1 2CM IN LENGTH, SITE #2 4CM IN LENGTH. NO DRAINAGE. INCISION SITES ERYTHEMA,SWELLING AND PAIN TO TOUCH. LIMITED ROM TO ALL FINGERS DUE TO SWELLING TO FINGERS AND HAND, DR. HUBER EXAMED THE HAND. AT BEDSIDE. INCISION SITES CLEANSE WITH NS. PAT DRY,ISLAND DRESSING APPLIED.
--- NOTE | 2020-01-16 18:00 | NUR ---
PATIENT TRANSFERRED TO [facility] UNIT [address] ROOM #1 BED #2 FOR HIGHER LEVEL OF CARE. REPORT GIVEN TO CASSIE PINEDO FOR CONTINUATION OF CARE. DISCHARGE PAPERWORK UNABLE TO BE SIGNED BY PAPERWORK DUE TO ALTERED MENTAL STATUS. IV LINE KEPT FOR USE AT [facility]. PATIENT GOWN REPLACED, PATIENT AWARE OF TRANSFER. PATIENT IS TACHYPNIC, WITH SIGNS OF INFECTION. PATIENT DENIES PAIN AT THIS TIME.
[2020-01-17] MEDS ORDERED: GAUZE TP SCH (13:00)
== END 2020-01-16 18:00 | disposition short-term general hospital (02) | DRG 364 ==
LOC: MED 17:47 → MMU 19:58 → UNDOADMIN 19:58 → MMU 21:36
PROVIDERS: ADMIT General Practice; ATTEND General Practice
PROC: 0H9FXZZ Drainage of Right Hand Skin, External Approach (ICD-10-PCS; 2020-01-14)
PROC: 0J9J0ZZ Drainage of Right Hand Subcutaneous Tissue and Fascia, Open Approach (ICD-10-PCS; principal; 2020-01-14 11:00)
DX: L02.511 Cutaneous abscess of right hand (principal); E66.01 Morbid (severe) obesity due to excess calories; S61.011A Laceration without foreign body of right thumb without damage to nail, initial encounter; L03.011 Cellulitis of right finger; E83.39 Other disorders of phosphorus metabolism; S63.601A Unspecified sprain of right thumb, initial encounter; M72.9 Fibroblastic disorder, unspecified; F17.210 Nicotine dependence, cigarettes, uncomplicated; W18.39XA Other fall on same level, initial encounter; Y93.89 Activity, other specified; Z68.35 Body mass index [BMI] 35.0-35.9, adult; Z71.3 Dietary counseling and surveillance; Y92.89 Other specified places as the place of occurrence of the external cause; Y99.8 Other external cause status
CPT/HCPCS: 36415; 71045; 73130; 76536; 80048; 80053; 80202; 80305; 81001; 82150; 83036; 83605; 83690; 83735; 83880; 84100; 84134; 84439; 84443; 84484; 85025; 85610; 85730; 87040; 87070; 87075; 87081; 87205; 88304; 93005; 96365; 96375; 99285; G0482; J0690; J1644; J1815; J1885; J2001; J2270; J2405; J2543; J2704; J3010; J3370; J3490; J7030; J7060; Q0092

== ENCOUNTER 2020-01-25 09:51 | Emergency (ER) | payer MEDICAID ==
[~2020-01-25] VITALS: Ht 172.7 cm; Wt 99.3 kg
[~2020-01-25 09:51] MED LIST: LACT10CA PO; Vancomycin Per Pharmacy MC; ZOS3.375PM IV
[2020-01-25 09:58] VITALS: BP 129/77
[2020-01-25] MEDS ORDERED: FURO-572 PO (10:23)
[2020-01-25] MEDS ORDERED: CARV3.12 PO (10:23)
[2020-01-25] MEDS ORDERED: BENA20TA PO (10:23)
[2020-01-25] MEDS ORDERED: CEPH500C16 PO (10:23)
[2020-01-25] MEDS ORDERED: VANCOMYCIN 1,000 MG in DEXTROSE 5% 250 ML IV ONE (11:15)
[2020-01-25] MEDS ORDERED: MORPHINE SULFATE 4 MG/ML SYR IVP ONE (11:15)
[2020-01-25] MEDS ORDERED: NACL 0.9% 500 ML IV ONE (11:15)
[2020-01-25] MEDS ORDERED: VANCOMYCIN 1,000 MG VIAL ONE (11:16)
[2020-01-25 11:42] LABS: BASOPHILS % (AUTO) 0.5 % (0.0-2.0); EOSINOPHILS # (AUTO) 0.1 K/uL (0-0.4); EOSINOPHILS % (AUTO) 1.2 % (0.0-4.0); HEMATOCRIT 41.7 % (36-52); LYMPHOCYTES # (AUTO) 2.3 K/uL (2.0-11.5); LYMPHOCYTES % (AUTO) 26.1 % (20.5-51.1); MEAN CORPUSCULAR HEMOGLOBIN 30 pg (27-31); MEAN CORPUSCULAR HGB CONC 34 g/dL (33-37); MEAN CORPUSCULAR VOLUME 89.3 fL (80-94); MONOCYTES # (AUTO) 0.6 K/uL (0.8-1.0); MONOCYTES % (AUTO) 6.7 % (1.7-9.3); NEUTROPHILS # (AUTO) 5.7 K/uL (1.8-7.7); NEUTROPHILS % (AUTO) 65.5 % (42.2-75.2); PLATELET COUNT (AUTO) 495 K/uL (140-450); RED BLOOD CELL COUNT(AUTO) 4.67 MIL/uL (4.20-6.10); RED CELL DISTRIBUTION WIDTH 13.3 % (11.6-13.7); WHITE BLOOD COUNT (AUTO) 8.7 K/uL (4.8-10.8)
[2020-01-25 11:54] LABS: ANION GAP 12.3 (8-16); CARBON DIOXIDE 29.2 mmol/L (21-32); CREATININE 0.8 mg/dL (0.6-1.3); POTASSIUM 4.5 mmol/L (3.5-5.1)
[2020-01-25 14:51] LABS: APPEARANCE,URINE CLEAR (CLEAR); BILIRUBIN,URINE NEGATIVE (NEGATIVE); BLOOD, URINE NEGATIVE (NEGATIVE); COLOR,URINE YELLOW (YELLOW); LEUKOCYTE ESTERASE ,URINE TRACE (NEGATIVE); NITRITE, URINE NEGATIVE (NEGATIVE); UGLUCOSE NEGATIVE (NEGATIVE)
[2020-01-25 15:06] VITALS: BP 122/52
== END 2020-01-25 15:08 | disposition short-term general hospital (02) ==
LOC: MED 09:51
DX: L02.511 Cutaneous abscess of right hand (principal); I10 Essential (primary) hypertension; Z98.890 Other specified postprocedural states; Z79.899 Other long term (current) drug therapy
CPT/HCPCS: 36415; 73130; 80048; 81003; 83605; 85025; 85651; 86140; 87040; 96365; 96375; 99285; J2270; J3370; J7030; J7060

== ENCOUNTER 2020-03-12 15:00 | Emergency (ER) | payer MEDICAID ==
[~2020-03-12] VITALS: Ht 182.9 cm; Wt 104.8 kg
[~2020-03-12 15:00] MED LIST changes: +BENA20TA PO; +CARV3.12 PO; +CEPH500C16 PO; +FURO-572 PO
[2020-03-12 15:04] VITALS: BP 162/84
[2020-03-12 15:56] VITALS: BP 162/84
== END 2020-03-12 15:58 | disposition home or self-care (01) ==
LOC: MED 15:00
DX: M54.42 Lumbago with sciatica, left side (principal); I11.0 Hypertensive heart disease with heart failure; Z79.899 Other long term (current) drug therapy
CPT/HCPCS: 99283